=== PATIENT | female | born 1995 | race Caucasian/White ===

== ENCOUNTER 2023-03-31 06:17 | Inpatient (IN) | payer OTHER, MEDICAID ==
[~2023-03-31] VITALS: Ht 165.1 cm; Wt 95.3 kg
[2023-03-31] MEDS ORDERED: DINOPROSTONE 10 MG SUPP VG ONE (07:30)
[2023-03-31] MEDS ORDERED: OXYTOCIN/0.9 % SODIUM CHLORIDE 1,000 ML IV SCH (07:30)
[2023-03-31] MEDS ORDERED: TERBUTALINE SULFATE 1 MG/ML VIAL SUBCUT ONE (07:30)
[2023-03-31 08:10] LABS: BASOPHILS % (AUTO) 0.3 % (0.0-2.0); EOSINOPHILS # (AUTO) 0.2 K/uL (0.0-0.4); EOSINOPHILS % (AUTO) 1.4 % (0.0-4.0); HEMATOCRIT 35.9 % (36-48); HEMOGLOBIN 11.8 g/dL (12.0-16.0); LYMPHOCYTES # (AUTO) 2.2 K/uL (1.0-5.5); LYMPHOCYTES % (AUTO) 19.3 % (20.5-51.5); MEAN CORPUSCULAR HEMOGLOBIN 27 pg (27-31); MEAN CORPUSCULAR HGB CONC 33 % (32-36); MEAN CORPUSCULAR VOLUME 83 fL (79.0-98.0); MONOCYTES # (AUTO) 0.6 K/uL (0.0-1.0); MONOCYTES % (AUTO) 5.5 % (1.7-9.3); NEUTROPHILS # (AUTO) 8.5 K/uL (1.8-7.7); NEUTROPHILS % (AUTO) 73.5 % (40.0-70.0); PLATELET COUNT (AUTO) 260 K/uL (130-430); RED CELL DISTRIBUTION WIDTH 14.2 % (9.0-15.0); WHITE BLOOD COUNT (AUTO) 11.6 K/uL (4.8-10.8)
[2023-03-31 11:38] LABS: BILIRUBIN,URINE NEGATIVE (NEGATIVE); BLOOD, URINE NEGATIVE (NEGATIVE); COLOR,URINE YELLOW (YELLOW); GLUCOSE,URINE NEGATIVE (NEGATIVE); KETONES,URINE NEGATIVE (NEGATIVE); LEUKOCYTE ESTERASE ,URINE 1+ (NEGATIVE); NITRITE, URINE NEGATIVE (NEGATIVE); PROTEIN URINE NEGATIVE (NEGATIVE); UROBILINOGEN,URINE 0.2 (0.2-1.0)
[2023-03-31 11:45] LABS: CLARITY/URINE HAZY (CLEAR)
[2023-03-31 11:53] LABS: BACTERIA,URINE FEW /HPF (None Seen); MUCUS,URINE 1+ /LPF (None Seen); RBC,URINE 0-3 /HPF (0-3)
[2023-03-31 21:42] VITALS: BP_SYST 120
[2023-04-01] MEDS ORDERED: DINOPROSTONE 10 MG SUPP VG ONE (06:00)
[2023-04-01] MEDS: NALBUPHINE HCL 10 MG/ML AMP IVP PRN (20:44)
[2023-04-02] MEDS: NALBUPHINE HCL 10 MG/ML AMP IVP PRN ×2 (03:25→09:32)
[2023-04-02] MEDS: LR 1,000 ML IV SCH ×2 (06:28→12:24)
[2023-04-02] MEDS ORDERED: CEFAZOLIN 2 GM IVPB PREMIX 50 ML IV ONE (12:00)
[2023-04-02] MEDS ORDERED: OXYTOCIN/0.9 % SODIUM CHLORIDE 1,000 ML IV ONE (12:30)
[2023-04-02] MEDS ORDERED: LANOLIN 7 GM OINT. TP PRN (12:30)
[2023-04-02] MEDS ORDERED: KETOROLAC TROMETHAMINE 30 MG VIAL IVP PRN (12:30)
[2023-04-02] MEDS ORDERED: OXYCODONE/ACETAMINOPHEN 5-325 TABLET PO PRN ×2 (12:30)
[2023-04-02] MEDS ORDERED: LR 1,000 ML IV SCH (12:30)
[2023-04-02] MEDS ORDERED: ANUSOL 1 EA SUPP.RECT (PREPARATION H) RC PRN (12:30)
[2023-04-02] MEDS ORDERED: BISACODYL 10 MG/SUPPOSITORY RC PRN (12:30)
[2023-04-02] MEDS ORDERED: BUPIVACAINE /DEX PF 0.75% SPINAL 2 ML AMP INJ ONE (12:39)
[2023-04-02] MEDS ORDERED: ePHEDrine sulfate 50 MG/ML VIAL ONE (12:39)
[2023-04-02] MEDS ORDERED: KETOROLAC TROMETHAMINE 30 MG VIAL ONE (12:39)
[2023-04-02] MEDS ORDERED: MORPHINE SULFATE 10MG/10ML PF AMP ONE (12:39)
[2023-04-02] MEDS ORDERED: WATER FOR IRRIGATION,STERILE 1,000 ML IRRIG.SOLN IR ONE (12:39)
[2023-04-02] MEDS ORDERED: fentaNYL CITRATE/PF 100 MCG/2 ML AMP ONE (12:39)
[2023-04-02] MEDS ORDERED: LR 1,000 ML IV.SOLN IV ONE (12:39)
[2023-04-02] MEDS ORDERED: NS IRRIG SOLN 1000 ML IR ONE (12:39)
[2023-04-02] MEDS ORDERED: OXYTOCIN 10 UNIT/ML VIAL ONE (12:39)
[2023-04-02 14:00] VITALS: BP_SYST 104
[2023-04-02] MEDS ORDERED: TEMAZEPAM 15 MG CAPSULE PO PRN (21:00)
[2023-04-02] MEDS ORDERED: SENNOSIDES/DOCUSATE SODIUM 1 TAB TABLET(SENOKOT-S) PO SCH (21:00)
[2023-04-02] MEDS ORDERED: ONDANSETRON HCL 4 MG/2 ML VIAL IVP PRN (21:30)
[2023-04-03 06:30] LABS: BASOPHILS % (AUTO) 0.1 % (0.0-2.0); EOSINOPHILS % (AUTO) 0.2 % (0.0-4.0); HEMATOCRIT 29.8 % (36-48); LYMPHOCYTES # (AUTO) 1.8 K/uL (1.0-5.5); MEAN CORPUSCULAR HEMOGLOBIN 28 pg (27-31); MEAN CORPUSCULAR HGB CONC 33 % (32-36); MEAN CORPUSCULAR VOLUME 84 fL (79.0-98.0); MONOCYTES # (AUTO) 0.9 K/uL (0.0-1.0); MONOCYTES % (AUTO) 5.5 % (1.7-9.3); NEUTROPHILS # (AUTO) 13.7 K/uL (1.8-7.7); NEUTROPHILS % (AUTO) 83.2 % (40.0-70.0); PLATELET COUNT (AUTO) 225 K/uL (130-430); RED BLOOD CELL COUNT(AUTO) 3.56 MIL/uL (4.2-6.2); RED CELL DISTRIBUTION WIDTH 14.3 % (9.0-15.0); WHITE BLOOD COUNT (AUTO) 16.4 K/uL (4.8-10.8)
[2023-04-03] MEDS: SIMETHICONE 80 MG TAB.CHEW PO PRN ×3 (06:48→18:08)
[2023-04-03] MEDS: IBUPROFEN 800 MG TABLET PO PRN ×2 (13:09→18:08)
[2023-04-03] MEDS: DOCUSATE SODIUM 100 MG CAPSULE PO SCH ×2 (13:10→20:58)
[2023-04-04] MEDS: SIMETHICONE 80 MG TAB.CHEW PO PRN ×2 (00:04→12:21)
[2023-04-04] MEDS: IBUPROFEN 800 MG TABLET PO PRN ×3 (00:05→12:22)
[2023-04-04] MEDS: DOCUSATE SODIUM 100 MG CAPSULE PO SCH (12:20)
== END 2023-04-04 12:47 | disposition home or self-care (01) | DRG 788 ==
LOC: SPU 06:17
PROVIDERS: ADMIT Obstetrics & Gynecology; ATTEND Obstetrics & Gynecology
PROC: 3E0P7VZ Introduction of Hormone into Female Reproductive, Via Natural or Artificial Opening (ICD-10-PCS; 2023-04-02)
PROC: 10D00Z1 Extraction of Products of Conception, Low, Open Approach (ICD-10-PCS; principal; 2023-04-02 12:34)
DX: O48.0 Post-term pregnancy (principal); Z3A.40 40 weeks gestation of pregnancy; O61.9 Failed induction of labor, unspecified; Z37.0 Single live birth
CPT/HCPCS: 36415; 81000; 85025; 86592; 86886; 86900; 86901; J0690; J1885; J2274; J2300; J2405; J2590; J3010; J3490; J7120